=== PATIENT | male | born 1995 | race Caucasian/White ===

== ENCOUNTER 2020-05-05 03:02 | Emergency (ER) | payer BC ==
[~2020-05-05] VITALS: Ht 185.4 cm; Wt 73.0 kg
[2020-05-05 03:05] VITALS: BP_SYST 127
[2020-05-05] MEDS ORDERED: LIDOCAINE 1%, 20 ML MDV 20 ML ONE (04:02)
[2020-05-05] MEDS: LIDOCAINE PF 1%, 20 MG/2 ML AMP INJ ONE (04:21)
[2020-05-05 04:49] LABS: EOSINOPHILS # (AUTO) 0.1 K/uL (0.0-0.4); MEAN CORPUSCULAR HEMOGLOBIN 32 pg (27-31); MEAN CORPUSCULAR HGB CONC 34 % (32-36); RED CELL DISTRIBUTION WIDTH 12.6 % (9.0-15.0)
[2020-05-05 04:53] LABS: CALCIUM 8.4 mg/dL (8.4-11.0); CREATININE 0.92 mg/dL (0.55-1.30); POTASSIUM 4.4 mmol/L (3.5-5.1)
[2020-05-05 04:56] LABS: BASOPHILS # (AUTO) 0.1 K/uL (0.0-0.2); BASOPHILS % (AUTO) 1.3 % (0.0-2.0); LYMPHOCYTES # (AUTO) 1.9 K/uL (1.0-5.5); MEAN CORPUSCULAR VOLUME 95 fL (79.0-98.0); MONOCYTES % (AUTO) 11.3 % (1.7-9.3); NEUTROPHILS # (AUTO) 5.7 K/uL (1.8-7.7); NEUTROPHILS % (AUTO) 64.4 % (40.0-70.0); PLATELET COUNT (AUTO) 201 K/uL (130-430); RED BLOOD CELL COUNT(AUTO) 4.34 MIL/uL (4.2-6.2); WHITE BLOOD COUNT (AUTO) 8.8 K/uL (4.8-10.8)
[2020-05-05 04:58] LABS: ALBUMIN 3.5 g/dL (3.4-4.8); TOTAL BILIRUBIN 0.4 mg/dL (0.0-1.0)
[2020-05-05 05:05] LABS: BILIRUBIN,URINE NEGATIVE (NEGATIVE); BLOOD, URINE NEGATIVE (NEGATIVE); CLARITY/URINE CLEAR (CLEAR); COLOR,URINE YELLOW (YELLOW); GLUCOSE,URINE NEGATIVE (NEGATIVE); KETONES,URINE NEGATIVE (NEGATIVE); LEUKOCYTE ESTERASE ,URINE NEGATIVE (NEGATIVE); NITRITE, URINE NEGATIVE (NEGATIVE); PH,URINE 5.5 (5.0-8.0); PROTEIN URINE NEGATIVE (NEGATIVE); UROBILINOGEN,URINE 0.2 (0.2-1.0)
[2020-05-05 05:46] LABS: ERYTHROCYTE SEDIMENTATION RATE 2 MM/HR (0-15)
[2020-05-05 06:08] LABS: BF APPEARANCE UNSPUN HAZY (CLEAR); BODY FLUID SOURCE/ TYPE SYNOVIAL; SOURCE/TYPE ,BODY FLUID SYNOVIAL
[2020-05-05 06:09] LABS: BODY FLUID TOTAL VOLUME 12 mL; WBC, BODY FLUID 333 /uL
[2020-05-05 06:10] LABS: RBC, BODY FLUID 33766 /uL
[2020-05-05 06:38] VITALS: BP_SYST 124
[2020-05-05 06:40] LABS: BODY FLUID CRYSTALS NO CRYSTALS SEEN (None Seen)
[2020-05-05 06:58] LABS: LYMPHOCYTES, BODY FLUID 54 %; NEUTROPHIL, BODY FLUID 46 %
[2020-05-05 10:28] LABS: BODY FLUID GLUCOSE 117 mg/dL; BODY FLUID TOTAL PROTEIN 4.5 g/dL
== END 2020-05-05 06:38 | disposition home or self-care (01) ==
LOC: SED 03:02
DX: M70.41 Prepatellar bursitis, right knee (principal); F17.200 Nicotine dependence, unspecified, uncomplicated
CPT/HCPCS: 20610; 36415; 80053; 81003; 82947; 84157; 85025; 85651; 87070; 87186; 89051 ×2; 89060; 99283; J2001